=== PATIENT | female | born 1990 | race Caucasian/White ===

== ENCOUNTER 2017-06-18 10:20 | Inpatient (IN) | payer OTHER ==
[2017-06-18 13:35] VITALS: BMI 27.1
[2017-06-18 14:03] LABS: BASO % 0.3 % (0-2.0); EOS % 0.2 % (0-4.5); HEMATOCRIT 40.7 % (32.4-45.2); HEMOGLOBIN 13.5 GM/dL (10.7-15.3); LYMPH % 15.8 % (8-40); MCH 31.6 pg (25.7-33.7); MCHC 33.1 g/dl (32.0-36.0); MEAN CELL VOLUME 95.4 fl (80-96); MEAN PLT VOLUME 11.2 fl (7.5-11.1); MONO % 6.4 % (3.8-10.2); NEUT % 77.3 % (42.8-82.8); PLATELET COUNT 134 K/MM3 (134-434); RBC 4.27 M/mm3 (3.60-5.2); RDW 12.8 % (11.6-15.6); WHITE BLOOD COUNT 10.4 K/mm3 (4.0-10.0)
[2017-06-18 14:21] LABS: INR 0.93 (0.82-1.09); PROTHROMBIN TIME (PATIENT) 10.5 SEC (9.98-11.88)
[2017-06-18 14:24] LABS: ACTIVATED PTT 25.7 SECONDS (26.9-34.4)
[2017-06-18 14:29] LABS: ANION GAP 9 (8-16); BLOOD UREA NITROGEN 7 mg/dL (7-18); CALCIUM 8.6 mg/dL (8.5-10.1); CHLORIDE 109 mmol/L (98-107); CO2 21 mmol/L (21-32); CREATININE 0.5 mg/dL (0.55-1.02); GLUCOSE,RANDOM 72 mg/dL (74-106); SODIUM 139 mmol/L (136-145)
[2017-06-18] MEDS ORDERED: ELECTROLYTE-148 SOLN 500 ML IV ONE ×2 (15:45→16:45)
[2017-06-18] MEDS: ELECTROLYTE-148 SOLN 1,000 ML IV SCH ×2 (18:08→22:58)
[2017-06-18] MEDS ORDERED: DINOPROSTONE 10 MG VAGINAL SUPPOSITORY VG ONE (20:10)
--- NOTE | 2017-06-18 20:25 | HP ---
Past Medical History - Admission Chief Complaint: NST History of Present Illness: 26yo LMp 09/01/16 EDC 06/08/17 by LMP c/w 13 week sono, SIUP at 41weeks and 3 days presents for NST/BPP. Pt noted to have variable and admitted for induction. PNC at [facility] care significant for late registrant at 27 weeks with minimal records. Pt A+/Rubella immune/hep b sag negative/hgb aa/ucx negative/pap negative/cf negative/quantiferon negative/GBS negative/gc negative/chlam negative/rpr nr/ gct 107/hiv negative/ hct 40 Pt denies contractions or loss of fluid. 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: No: Alzheimer's, CVA, Dementia, Migraine, Multiple Sclerosis, Peripheral Neuropathy, Parkinson's, Seizure, Syncope, TIA, Vertigo, Other Cardiovascular: No: AFIB, Aneurysm, Aortic Insufficiency, Aortic Stenosis, CAD, CHF, Deep Vein Thrombosis, HTN, Hyperlipdemia, ME, Mitral Insufficiency, Mitral Stenosis, Murmur, Pulmonary Hypertension, Other Pulmonary: No: Asthma, Bronchitis, Cancer, COPD, O2 Dependent, Pneumonia, Previously Intubated, Pulmonary Embolus, Pulmonary Fibrosis, Sleep Apnea, Other Gastrointestinal: No: Ascites, Cancer, Constipation, Crohn's Disease, Diverticulitis, Diverticulosis, Esophageal Varices, Gastritis, GERD, GI Bleed, Hemorrhoids, Hiatal Hernia, Inflamatory Bowel Disease, Irritable Bowel Disease, Pancreatitis, Peptic Ulcer Disease, Ulcerative Colitis, Other Hepatobiliary: No: Cirrhosis, Cholelithiasis, Cholecystitis, Choledocholithiasis , Hepatitis A, Hepatitis B, Hepatitis C, Other Renal/: No: Renal Failure, Renal Inusuff, BPH, Cancer, Hematuria, Hemodialysis , Neurogenic Bladder, Renal Calculi, UTI, Other Reproductive: No: Ectopic , Endometriosis, Fibroids, PID, Polycystic Ovary Syndrome, Postmenopausal, Other ...: 1 ...Para: 0 ...LMP: 09/01/16 ... Weeks Gestation by Dates: 41.3 ...EDC by Dates: 06/08/17 Infectious Disease: No: AIDS, C-Diff, Herpes Zoster, HIV, MRSA, STD's, Tuberculosis, VREF, Other Psych: No: Addictions, Anxiety, Bipolar, Depression, Panic, Psychosis, Schizophrenia, Other - Past Surgical History Past Surgical History: Yes: None Hx Myomectomy: No Hx Transabdominal Cerclage: No - Smoking History Smoking history: Never smoked Have you smoked in the past 12 months: No - Alcohol/Substance Use Hx Alcohol Use: No History of Substance Use: reports: None - Social History History of Recent Travel: No Home Medications - Allergies Allergies/Adverse Reactions: Allergies Allergy/AdvReac Type Severity Reaction Status Date / Time orange Allergy Unknown Rash Verified 06/18/17 20:28 - Home Medications Home Medications: Ambulatory Orders Ferrous Sulfate 325 mg PO DAILY 06/18/17 Vit 108/Iron/Folic AC [ One Tablet] 1 tab PO DAILY 06/18/17 Family Disease History - Family Disease History Family Disease History: Heart Disease: Grandparent, Other: Father (stroke) Review of Systems - Review of Systems Constitutional: reports: No Symptoms Eyes: reports: No Symptoms HENT: reports: No Symptoms Neck: reports: No Symptoms Cardiovascular: reports: No Symptoms Respiratory: reports: No Symptoms Gastrointestinal: reports: No Symptoms Genitourinary: reports: No Symptoms Breasts: reports: No Symptoms Reported Musculoskeletal: reports: No Symptoms Integumentary: reports: No Symptoms Neurological: reports: No Symptoms Endocrine: reports: No Symptoms Hematology/Lymphatic: reports: No Symptoms Psychiatric: reports: No Symptoms Pain Intensity: 0 Physical Exam - Maternity Vital Signs: Vital Signs Temperature 98.8 F 06/18/17 18:00 Pulse Rate 72 06/18/17 19:00 Respiratory Rate 20 06/18/17 19:00 Blood Pressure 123/67 06/18/17 19:00 O2 Sat by Pulse Oximetry (%) Constitutional: Yes: Well Nourished, No Distress, Calm Eyes: Yes: WNL, Conjunctiva Clear, EOM Intact HENT: Yes: WNL, Atraumatic, Normocephalic Neck: Yes: WNL, Supple, Trachea Midline Cardiovascular: Yes: WNL, Regular Rate and Rhythm - Abdominal Exam/OB Fundal Height: 40 Number of Fetuses: Single Presentation: Vertex Regularity: Irregular Intensity: Unaware Monitor Mode: External Heart Rate (range): 130 Heart Rate Location: [facility] Category: I Accelerations: Uniform Decelerations: Variable - Vaginal Exam/OB Vaginal Bleediing: No Speculum Exam: No Dilatation (cm): ft Effacement (%): long Amniotic Membrane Status: Intact Presentation: Vertex/Position Station: -2 - Physical Exam Musculoskeletal: Yes: WNL Extremities: Yes: WNL Edema: No Integumentary: Yes: WNL Psychiatric: Yes: WNL - Labs Lab Results: CBC, BMP 06/18/17 13:52 06/18/17 13:52 Hemorrhage Risk Assessment - Risk Factors Medium Risk Factors: Yes: None High Risk Factors: Yes: None Risk Score: 1 Risk Level: Medium Risk Imaging - Results Ultrasound: Report Reviewed Problem List - Problems (1) Post-dates Code(s): O48.0 - POST-TERM Qualifiers: Post-term type: 40-42 weeks gestation Qualified Code(s): O48.0 - Post-term Assessment/Plan 26yo at 41.3 weeks with variable on NST admitted for induction. Tracing reviewed. currently category 1 admit to labor and delivery cervidil induction pain management as needed monitor maternal status Dr. Montejo
--- NOTE | 2017-06-18 20:37 | DS ---
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: Vital Signs Temperature 98.8 F 06/18/17 18:00 Pulse Rate 72 06/18/17 19:00 Respiratory Rate 20 06/18/17 19:00 Blood Pressure 123/67 06/18/17 19:00 O2 Sat by Pulse Oximetry (%) Constitutional: Yes: Well Nourished, No Distress, Calm Eyes: Yes: WNL, Conjunctiva Clear, EOM Intact HENT: Yes: WNL, Atraumatic, Normocephalic Neck: Yes: WNL, Supple, Trachea Midline Cardiovascular: Yes: WNL, Regular Rate and Rhythm Respiratory: Yes: WNL, Regular, CTA Bilaterally Gastrointestinal: Yes: WNL ...Rectal Exam: Yes: WNL Renal/: Yes: WNL Breast(s): Yes: WNL Musculoskeletal: Yes: WNL Extremities: Yes: WNL Integumentary: Yes: WNL Neurological: Yes: WNL, Alert, Oriented ...Motor Strength: WNL Psychiatric: Yes: WNL, Alert, Oriented Labs: CBC, BMP 06/18/17 13:52 06/18/17 13:52 Delivery, Single - Feeding Plan Initial Plan: Exclusive throughout hospitalization Discharge Summary Reason For Visit: INDUCTION Current Active Problems Post-dates (Acute) - Instructions - Home Medications Comprehensive Discharge Medication List: Ambulatory Orders Ferrous Sulfate 325 mg PO DAILY 06/18/17 Vit 108/Iron/Folic AC [ One Tablet] 1 tab PO DAILY 06/18/17
[2017-06-18] MEDS ORDERED: BUTORPHANOL TARTRATE 1 MG/ML VIAL IVPB ONE (20:45)
[2017-06-18] MEDS ORDERED: PROMETHAZINE HCL 25 MG/1 ML VIAL IVPUSH ONE (20:45)
[2017-06-18] MEDS ORDERED: ELECTROLYTE-148 SOLN 1,000 ML IV SCH (20:45)
[2017-06-19] MEDS ORDERED: ELECTROLYTE-148 SOLN 1,000 ML IV ONE (05:00)
[2017-06-19] MEDS ORDERED: OXYTOCIN 30 UNITS in 0.9% NS 30 UNIT/500 ML INFUS.BAG IVPB ONE (08:30)
--- NOTE | 2017-06-19 09:09 | PN ---
Progress Note, Labor Vaginal Exam #2 Labor Exam Date: 06/19/17 Labor Exam Time: 08:25 Heart Rate (range): 135 Dilatation: 1-2 Effacement (%): 50 Amniotic Membrane Status: Intact Presentation: Vertex/Position Station: -2 (Pt s/p cervidil #1. Now /-2. Category 1 tracing.)
[2017-06-19] MEDS: ELECTROLYTE-148 SOLN 1,000 ML IV SCH ×2 (11:05→17:00)
[2017-06-19] MEDS ORDERED: BUTORPHANOL TARTRATE 1 MG/ML VIAL ONE ×2 (12:23)
[2017-06-19] MEDS ORDERED: PROMETHAZINE HCL 25 MG/1 ML VIAL ONE (12:23)
[2017-06-19] MEDS ORDERED: OXYTOCIN 20 UNITS in 0.9% NS 20 UNIT/1,000 ML INFUS.BAG IV ONE (14:51)
[2017-06-19] MEDS ORDERED: LIDOCAINE HCL 1% PRESERVATIVE FREE - 30ML VIAL ONE (14:51)
--- NOTE | 2017-06-19 16:33 | PN ---
Ante-Partal Exam - Subjective Vital Signs: Vital Signs Temperature 98.2 F 06/19/17 14:00 Pulse Rate 75 06/19/17 15:00 Respiratory Rate 20 06/19/17 15:00 Blood Pressure 138/76 06/19/17 15:00 O2 Sat by Pulse Oximetry (%) Bleeding: No Headache: No Visual changes: No Right upper quadrant pain: No - Contractions Contractions: Yes Regularity: Regular Monitor Mode: External - Exam during Labor Heart Rate: 140 Variability: Moderate Heart Rate Location: Midline Category: I Monitor Accelerations: Present Monitor Decelerations: None Exam: Vaginal Dilatation (cm): 10 Effacement (%): 100 Amniotic Membrane Status: Ruptured Nitrazine Test: Positive - Assessment/Plan Assessment/Plan: pt hase been pushing with head asynclitic after pushing with good efforts will proceed with primary c section
[2017-06-19] MEDS ORDERED: CITRIC ACID/SODIUM CITRATE 30 ML UNIT-DOSE CUP PO ONE (16:35)
[2017-06-19] MEDS ORDERED: morphine SULFATE/Preservative Free 0.5 MG/ML (1cc Syringe) ONE (17:10)
[2017-06-19] MEDS: OXYTOCIN 20 UNITS in 0.9% NS 20 UNIT/1,000 ML INFUS.BAG IV SCH ×2 (17:30→18:24)
[2017-06-19] MEDS ORDERED: METHYLERGONOVINE MALEATE 0.2 MG/1 ML AMP IM PRN (17:43)
[2017-06-20] MEDS: OXYTOCIN 20 UNITS in 0.9% NS 20 UNIT/1,000 ML INFUS.BAG IV SCH ×2 (01:50→09:52)
[2017-06-20 07:28] LABS: BASO % 0.1 % (0-2.0); HEMATOCRIT 34.5 % (32.4-45.2); HEMOGLOBIN 11.7 GM/dL (10.7-15.3); LYMPH % 11.3 % (8-40); MCH 32.2 pg (25.7-33.7); MCHC 33.8 g/dl (32.0-36.0); MEAN CELL VOLUME 95.3 fl (80-96); MEAN PLT VOLUME 10.8 fl (7.5-11.1); MONO % 6.8 % (3.8-10.2); NEUT % 81.8 % (42.8-82.8); PLATELET COUNT 129 K/MM3 (134-434); RBC 3.62 M/mm3 (3.60-5.2); RDW 12.9 % (11.6-15.6); WHITE BLOOD COUNT 13.7 K/mm3 (4.0-10.0)
[2017-06-20] MEDS ORDERED: oxyCODONE HCL 5 MG TABLET PO PRN (07:49)
--- NOTE | 2017-06-20 09:58 | PN ---
Post Progress Note Post Day: 1 Type of Delivery: Primary C/S Vital Signs: Vital Signs Temperature 98.4 F 06/20/17 08:32 Pulse Rate 100 H 06/20/17 08:32 Respiratory Rate 20 06/20/17 09:00 Blood Pressure 142/79 06/20/17 08:32 O2 Sat by Pulse Oximetry (%) 99 06/19/17 18:43 Breast Exam: Yes: Soft Uterus: Yes: Fundus Firm Incision: Yes: Dressing dry and intact Abdomen/GI: Yes: Abdomen soft Lochia: Yes: Rubra Lochia, amount: Small Extremities: Yes: Calves non-tender Perineum: Yes: Intact Activity: Ambulating - Labs Labs: CBC WBC 13.7 K/mm3 (4.0-10.0) H D 06/20/17 07:02 RBC 3.62 M/mm3 (3.60-5.2) 06/20/17 07:02 Hgb 11.7 GM/dL (10.7-15.3) D 06/20/17 07:02 Hct 34.5 % (32.4-45.2) D 06/20/17 07:02 MCV 95.3 fl (80-96) 06/20/17 07:02 MCH 32.2 pg (25.7-33.7) 06/20/17 07:02 MCHC 33.8 g/dl (32.0-36.0) 06/20/17 07:02 RDW 12.9 % (11.6-15.6) 06/20/17 07:02 Plt Count 129 K/MM3 (134-434) L 06/20/17 07:02 MPV 10.8 fl (7.5-11.1) 06/20/17 07:02 Neutrophils % 81.8 % (42.8-82.8) 06/20/17 07:02 Lymphocytes % 11.3 % (8-40) D 06/20/17 07:02 Monocytes % 6.8 % (3.8-10.2) 06/20/17 07:02 Eosinophils % 0.0 % (0-4.5) D 06/20/17 07:02 Basophils % 0.1 % (0-2.0) 06/20/17 07:02 Assessment/Plan check labs oob reg diet continue care
[2017-06-20] MEDS ORDERED: BISACODYL 10 MG SUPP.RECT RC PRN (17:43)
[2017-06-20] MEDS: IBUPROFEN 600 MG TABLET (FP) PO PRN (21:33)
[2017-06-20] MEDS: SIMETHICONE 80 MG TAB.CHEW (FP) PO PRN (21:33)
[2017-06-20] MEDS: ACETAMINOPHEN 325 MG TABLET (FP) PO PRN (21:40)
--- NOTE | 2017-06-21 08:05 | OP ---
DATE OF OPERATION: DATE OF DICTATION: 06/20/2017 HISTORY OF PRESENT ILLNESS: A 26-year-old female with failure to progress. POSTOPERATIVE DIAGNOSIS: A 26-year-old female with failure to progress. PROCEDURE: Primary section. OPERATING SURGEON: John Hennessy MD BUTTER GRADER: DEON Nolan ANESTHESIA: Kam Hobbs MD COMPLICATIONS: None. FINDINGS: Single live in ROT position, cord around the neck x1. ESTIMATED BLOOD LOSS: 500 mL. URINE OUTPUT: Catheterized specimen. DISPOSITION: To recovery room in stable, alert condition. DESCRIPTION OF PROCEDURE: Patient was consented prior to entering the operating suite. Patient was put on the table in dorsal supine position, prepped and draped in the usual sterile fashion. A low Pfannenstiel incision was carried down to the fascia, and the fascia was then transected to the left and right of midline. The muscle was then identified and then split digitally in the midline. The peritoneum was then entered sharply. The gravid uterus was then identified. Transverse incision was made and a gush of fluid was then seen. The was then delivered atraumatically through the incision. The placenta had been removed. The inferior aspect of the uterus was cleaned with a semi-wet lap pad. The uterus was then closed in a double layer of Biosyn suture. The right and left paracolic gutters were inspected, no gross lesions identified. The peritoneum with the muscle was then approximated. The fascia was then closed with Biosyn suture. The skin was then closed with tal. The patient was sent to recovery in stable, alert condition. JOHN HENNESSY M.D. JUAN [id number]
[2017-06-21] MEDS: ACETAMINOPHEN 325 MG TABLET (FP) PO PRN ×3 (08:17→20:49)
[2017-06-21] MEDS: IBUPROFEN 600 MG TABLET (FP) PO PRN ×3 (08:17→20:50)
[2017-06-21] MEDS: SIMETHICONE 80 MG TAB.CHEW (FP) PO PRN ×3 (08:17→20:49)
--- NOTE | 2017-06-21 10:09 | PN ---
Post Progress Note - Subjective Subjective: 26 yo Para 1 status post primary , seen and evaluated. Doing well. Post Day: 2 Type of Delivery: Primary C/S Vital Signs: Vital Signs Temperature 99.1 F 06/20/17 22:00 Pulse Rate 105 H 06/20/17 22:00 Respiratory Rate 18 06/20/17 22:00 Blood Pressure 133/78 06/20/17 22:00 O2 Sat by Pulse Oximetry (%) 99 06/19/17 18:43 Breast Exam: Yes: Soft Incision: Yes: [place] intact Abdomen/GI: Yes: Abdomen soft, Tolerating PO Lochia: Yes: Rubra Lochia, amount: Small Extremities: Yes: Calves non-tender Perineum: Yes: Intact Activity: Ambulating - Labs Labs: CBC WBC 13.7 K/mm3 (4.0-10.0) H D 06/20/17 07:02 RBC 3.62 M/mm3 (3.60-5.2) 06/20/17 07:02 Hgb 11.7 GM/dL (10.7-15.3) D 06/20/17 07:02 Hct 34.5 % (32.4-45.2) D 06/20/17 07:02 MCV 95.3 fl (80-96) 06/20/17 07:02 MCH 32.2 pg (25.7-33.7) 06/20/17 07:02 MCHC 33.8 g/dl (32.0-36.0) 06/20/17 07:02 RDW 12.9 % (11.6-15.6) 06/20/17 07:02 Plt Count 129 K/MM3 (134-434) L 06/20/17 07:02 MPV 10.8 fl (7.5-11.1) 06/20/17 07:02 Neutrophils % 81.8 % (42.8-82.8) 06/20/17 07:02 Lymphocytes % 11.3 % (8-40) D 06/20/17 07:02 Monocytes % 6.8 % (3.8-10.2) 06/20/17 07:02 Eosinophils % 0.0 % (0-4.5) D 06/20/17 07:02 Basophils % 0.1 % (0-2.0) 06/20/17 07:02 Problem List - Problems (1) Status post primary low transverse section Code(s): Z98.891 - HISTORY OF UTERINE SCAR FROM PREVIOUS SURGERY Assessment/Plan Status post primary Stable Ambulation Analgesia as needed Continue routine post op care
--- NOTE | 2017-06-22 10:08 | PN ---
Post Progress Note - Subjective Subjective: c/o pain scale 4/10 pt requests for discharge Post Day: 3 Type of Delivery: Primary C/S Vital Signs: Vital Signs Temperature 98.7 F 06/21/17 22:00 Pulse Rate 78 06/21/17 22:00 Respiratory Rate 18 06/21/17 22:00 Blood Pressure 138/78 06/21/17 22:00 O2 Sat by Pulse Oximetry (%) 99 06/19/17 18:43 Breast Exam: Yes: Soft, Other (BF). No: Engorged Uterus: Yes: Fundus Firm, Fundus below umbilicus, Non-tender Incision: Yes: Tal intact. No: Redness, Oozing Abdomen/GI: Yes: Abdomen soft, Passing flatus, Tolerating PO (diet). No: Abdominal Distention, Tender Lochia: Yes: Rubra Lochia, amount: Moderate Extremities: Yes: Calves non-tender Perineum: Yes: Intact Activity: Ambulating - Labs Labs: CBC WBC 13.7 K/mm3 (4.0-10.0) H D 06/20/17 07:02 RBC 3.62 M/mm3 (3.60-5.2) 06/20/17 07:02 Hgb 11.7 GM/dL (10.7-15.3) D 06/20/17 07:02 Hct 34.5 % (32.4-45.2) D 06/20/17 07:02 MCV 95.3 fl (80-96) 06/20/17 07:02 MCH 32.2 pg (25.7-33.7) 06/20/17 07:02 MCHC 33.8 g/dl (32.0-36.0) 06/20/17 07:02 RDW 12.9 % (11.6-15.6) 06/20/17 07:02 Plt Count 129 K/MM3 (134-434) L 06/20/17 07:02 MPV 10.8 fl (7.5-11.1) 06/20/17 07:02 Neutrophils % 81.8 % (42.8-82.8) 06/20/17 07:02 Lymphocytes % 11.3 % (8-40) D 06/20/17 07:02 Monocytes % 6.8 % (3.8-10.2) 06/20/17 07:02 Eosinophils % 0.0 % (0-4.5) D 06/20/17 07:02 Basophils % 0.1 % (0-2.0) 06/20/17 07:02 Problem List - Problems (1) Post-dates Code(s): O48.0 - POST-TERM Qualifiers: Post-term type: 40-42 weeks gestation Qualified Code(s): O48.0 - Post-term (2) Status post primary low transverse section Code(s): Z98.891 - HISTORY OF UTERINE SCAR FROM PREVIOUS SURGERY Assessment/Plan stable. pt will rtc for tal removal discharge today
[2017-06-22 11:09] LABS: BASO % 0.2 % (0-2.0); EOS % 0.6 % (0-4.5); HEMATOCRIT 36.5 % (32.4-45.2); HEMOGLOBIN 12.3 GM/dL (10.7-15.3); LYMPH % 11.6 % (8-40); MCH 31.9 pg (25.7-33.7); MCHC 33.6 g/dl (32.0-36.0); MEAN PLT VOLUME 10.7 fl (7.5-11.1); MONO % 4.4 % (3.8-10.2); NEUT % 83.2 % (42.8-82.8); PLATELET COUNT 148 K/MM3 (134-434); RBC 3.84 M/mm3 (3.60-5.2); RDW 12.6 % (11.6-15.6); WHITE BLOOD COUNT 10.9 K/mm3 (4.0-10.0)
[2017-06-22 12:00] VITALS: BP 130/73; PULSE 77; TEMP 98.8
[2017-06-22] MEDS: SIMETHICONE 80 MG TAB.CHEW (FP) PO PRN (14:46)
[2017-06-22] MEDS: IBUPROFEN 600 MG TABLET (FP) PO PRN (14:46)
[2017-06-22] MEDS: ACETAMINOPHEN 325 MG TABLET (FP) PO PRN (14:47)
--- NOTE | 2017-06-22 15:08 | PATH ---
Surgical Pathology Report Patient Name: VIOLA TAVERA Med. Rec. #: [id number] /Age/Gender: 1990 (Age: 26) / F Account: [id number] Location: [facility] Taken: 06/19/2017 Received: 06/20/2017 Reported: 06/22/2017 Physicians: Davi Millan M.D. Specimen(s) Received PLACENTA Clinical History Final Diagnosis PLACENTA, SECTION: 463 g THIRD TRIMESTER PLACENTA WITH TRIVASCULAR UMBILICAL CORD AND UNREMARKABLE PLACENTAL MEMBRANES. Electronically Signed Lilo Alvarado M.D. Gross Description The specimen is received fresh labeled placenta and is a 463 gram, 18.0 x 15.0 x 2.5 cm. placenta with attached membranes and umbilical cord. The attached membranes are flowers, translucent with focal opacities and insert marginally. The umbilical cord measures 41 cm. in length and averages 0.9 cm. in diameter. The cord inserts eccentrically, 3.5 cm. to the nearest margin. No true knots or strictures are identified. Cut surface of the umbilical cord reveals 3 vessels. The surface is mitchell-blue with minimal fibrin deposition and appropriate caliber vessels. The maternal surface is red-brown with focal defects. Sectioning reveals red-brown, spongy parenchyma. No lesions are identified. Diesel Automotive Technician sections are submitted in three cassettes as follows: 1- membrane rolls and umbilical cord; 2-3- full thickness sections of placenta. 06/21/201706/21/2017
== END 2017-06-22 16:44 | disposition home or self-care (01) | DRG 540 ==
LOC: JDEL 10:20 → JLDR 13:05 → J3W 06-19 19:57
PROVIDERS: ADMIT Obstetrics & Gynecology; ATTEND Obstetrics & Gynecology
PROC: 3E0P7VZ Introduction of Hormone into Female Reproductive, Via Natural or Artificial Opening (ICD-10-PCS; 2017-06-18)
PROC: 10D00Z1 Extraction of Products of Conception, Low, Open Approach (ICD-10-PCS; principal; 2017-06-20)
DX: O48.0 Post-term pregnancy (principal); O62.1 Secondary uterine inertia; O69.81X0 Labor and delivery complicated by cord around neck, without compression, not applicable or unspecified; Z3A.41 41 weeks gestation of pregnancy; Z37.0 Single live birth
CPT/HCPCS: 36415; 76819-TC; 80048; 85025; 85610; 85730; 86593; 86850; 86900; 86901; 88307-TC

== ENCOUNTER 2020-12-10 15:33 | Inpatient (IN) | payer OTHER ==
[2020-12-10] MEDS ORDERED: KETOROLAC TROMETHAMINE 30 MG/1 ML VIAL IM ONE ×2 (16:18→20:46)
[2020-12-10] MEDS ORDERED: KETOROLAC TROMETHAMINE 30 MG/1 ML VIAL ONE ×2 (17:10→21:53)
[2020-12-10] MEDS ORDERED: diazePAM 5 MG TABLET PO ONE (17:58)
[2020-12-10] MEDS ORDERED: diazePAM 5 MG TABLET ONE (18:02)
[2020-12-10 18:41] LABS: EPI CELLS 35 /uL (0-25.1); HYALINE CASTS 5 /uL (0-3.1); URINE APPEARANCE CLOUDY; URINE BACTERIA 1317 /uL (0-1359); URINE BILIRUBIN NEGATIVE (NEGATIVE); URINE COLOR YELLOW; URINE GLUCOSE (UA) NEGATIVE (NEGATIVE); URINE KETONE NEGATIVE (NEGATIVE); URINE LEUK ESTERASE TRACE (NEGATIVE); URINE NITRITE NEGATIVE (NEGATIVE); URINE PROTEIN NEGATIVE (NEGATIVE); URINE RBC 146 /uL (0-23.9); URINE UROBILINOGEN 0.2 mg/dL (0.2-1.0); URINE WBC 83 /uL (0-25.8)
[2020-12-10] MEDS ORDERED: LIDOCAINE 5% TOPICAL PATCH TP ONE (20:32)
[2020-12-10] MEDS ORDERED: DEXAMETHASONE SOD PHOSPHATE 10 MG/1 ML VIAL IVPUSH ONE (21:24)
[2020-12-10] MEDS ORDERED: morphine CARPU-JECT 2 MG/1 ML DISP.SYRIN IVPUSH ONE (21:24)
[2020-12-10] MEDS ORDERED: LIDOCAINE 5% TOPICAL PATCH ONE (21:53)
[2020-12-10] MEDS ORDERED: DEXAMETHASONE SOD PHOSPHATE 10 MG/1 ML VIAL ONE (22:32)
[2020-12-10] MEDS ORDERED: MORPHINE SULFATE 2 MG/ML VIAL ONE (22:32)
[2020-12-10 22:55] LABS: BASO % 0.3 % (0-2.0); HEMATOCRIT 38.8 % (32.4-45.2); HEMOGLOBIN 13.2 GM/dL (10.7-15.3); LYMPH % 13.7 % (8-40); MCH 30.9 pg (25.7-33.7); MCHC 34.1 g/dl (32.0-36.0); MEAN CELL VOLUME 90.6 fl (80-96); MEAN PLT VOLUME 9.6 fl (7.5-11.1); MONO % 3.2 % (3.8-10.2); NEUT % 82.8 % (42.8-82.8); PLATELET COUNT 232 10^3/uL (134-434); RBC 4.28 M/mm3 (3.60-5.2); RDW 12.4 % (11.6-15.6); WHITE BLOOD COUNT 7.5 K/mm3 (4.0-10.0)
[2020-12-10 23:20] LABS: CALCIUM 9.5 mg/dL (8.5-10.1)
[2020-12-10 23:21] LABS: BLOOD UREA NITROGEN 11.4 mg/dL (7-18)
[2020-12-10 23:24] LABS: CREATININE 0.7 mg/dL (0.55-1.3)
[2020-12-10 23:25] LABS: BILIRUBIN,TOTAL 0.4 mg/dL (0.2-1)
[2020-12-10 23:26] LABS: TOT PROT 7.5 g/dl (6.4-8.2)
[2020-12-11] MEDS: LIDOCAINE PATCH REMOVAL MC SCH ×2 (02:40→21:53)
[2020-12-11] MEDS ORDERED: KETOROLAC TROMETHAMINE 30 MG/1 ML VIAL IM PRN (02:41)
[2020-12-11 02:59] VITALS: BMI 22.3
[2020-12-11] MEDS ORDERED: DEXAMETHASONE SOD PHOSPHATE 10 MG/1 ML VIAL IVPUSH SCH (10:00)
[2020-12-11 10:29] LABS: BASO % 0.1 % (0-2.0); HEMATOCRIT 38.4 % (32.4-45.2); HEMOGLOBIN 13.1 GM/dL (10.7-15.3); LYMPH % 15.9 % (8-40); MCH 30.9 pg (25.7-33.7); MEAN CELL VOLUME 90.7 fl (80-96); MONO % 7.1 % (3.8-10.2); NEUT % 76.9 % (42.8-82.8); PLATELET COUNT 250 10^3/uL (134-434); RBC 4.23 M/mm3 (3.60-5.2); RDW 12.3 % (11.6-15.6); WHITE BLOOD COUNT 5.6 K/mm3 (4.0-10.0)
[2020-12-11 10:39] LABS: MAGNESIUM 2.1 mg/dL (1.8-2.4)
[2020-12-11 10:43] LABS: PHOSPHOROUS 2.2 mg/dL (2.5-4.9)
[2020-12-11] MEDS ORDERED: DEXAMETHASONE SOD PHOSPHATE 20 MG/5 ML VIAL IVPB ONE (15:54)
[2020-12-11] MEDS ORDERED: DEXAMETHASONE SOD PHOSPHATE 10 MG/1 ML VIAL IVPB ONE (16:15)
[2020-12-11] MEDS ORDERED: DEXAMETHASONE SOD PHOSPHATE/PF 10 MG/ML SDV IVPB ONE (16:15)
[2020-12-11] MEDS: IBUPROFEN 800 MG/8 ML IJ IVPB SCH ×2 (17:15→21:48)
[2020-12-12] MEDS: ACETAMINOPHEN 325 MG TABLET (FP) PO PRN ×2 (00:06→23:04)
[2020-12-12] MEDS: IBUPROFEN 800 MG/8 ML IJ IVPB SCH ×2 (05:00→09:47)
[2020-12-12] MEDS ORDERED: LIDOCAINE 5% TOPICAL PATCH TP ONE (06:54)
[2020-12-12 07:15] LABS: HEMATOCRIT 35.5 % (32.4-45.2); HEMOGLOBIN 12.3 GM/dL (10.7-15.3); MCH 31.3 pg (25.7-33.7); MCHC 34.6 g/dl (32.0-36.0); MEAN CELL VOLUME 90.6 fl (80-96); MEAN PLT VOLUME 9.8 fl (7.5-11.1); PLATELET COUNT 211 10^3/uL (134-434); RBC 3.92 M/mm3 (3.60-5.2); RDW 12.9 % (11.6-15.6); WHITE BLOOD COUNT 8.7 K/mm3 (4.0-10.0)
[2020-12-12] MEDS: GABAPENTIN 300 MG CAPSULE PO SCH ×2 (09:52→21:11)
[2020-12-12] MEDS: LIDOCAINE PATCH REMOVAL MC SCH ×2 (21:11)
[2020-12-13] MEDS: GABAPENTIN 300 MG CAPSULE PO SCH ×2 (09:17→21:04)
[2020-12-13] MEDS: ACETAMINOPHEN 325 MG TABLET (FP) PO PRN ×3 (09:18→21:03)
[2020-12-13] MEDS ORDERED: IBUPROFEN 800 MG/8 ML IJ IVPB PRN (18:47)
[2020-12-13] MEDS: LIDOCAINE PATCH REMOVAL MC SCH ×2 (21:04→21:05)
[2020-12-14] MEDS: GABAPENTIN 300 MG CAPSULE PO SCH (09:15)
[2020-12-14] MEDS: ACETAMINOPHEN 325 MG TABLET (FP) PO PRN (09:15)
[2020-12-14 14:37] VITALS: PULSE 73
[2020-12-14 15:21] VITALS: BP 118/69; TEMP 98.4
== END 2020-12-14 16:26 | disposition home or self-care (01) | DRG 347 ==
LOC: JERFT 15:33 → JER 15:33 → JERBED 23:41 → J7W 12-11 02:37
PROVIDERS: ADMIT Internal Medicine; ATTEND Internal Medicine
DX: M51.26 Other intervertebral disc displacement, lumbar region (principal); M54.32 Sciatica, left side
CPT/HCPCS: 36415; 72131-TC; 72148-TC; 80053; 81003; 83735; 84100; 84703; 85025; 85027; 93005; 93010; 97116-GP; 97161-GP; 99285-25; C9803; J1100; U0003; U0005